=== PATIENT | female | born 1990 | race Asian ===

== ENCOUNTER 2020-10-12 10:38 | Day surgery (SDC) | payer OTHER, SELFPAY ==
[~2020-10-12] VITALS: Ht 170.2 cm; Wt 81.6 kg
[2020-10-12] MEDS ORDERED: LIDOCAINE 2% 100 MG/5 ML UJET TP ONE (12:34)
[2020-10-12] MEDS ORDERED: fentaNYL citrate 0.05 MG/ML VIAL ONE (12:34)
[2020-10-12] MEDS ORDERED: MIDAZOLAM 5 MG/5 ML VIAL ONE ×2 (12:34→13:15)
[2020-10-12] MEDS ORDERED: diphenhydrAMINE 50 MG/ML VIAL ONE (12:34)
[2020-10-12] MEDS ORDERED: MIDAZOLAM 5 MG/5 ML VIAL IV ONE (13:40)
[2020-10-12] MEDS ORDERED: fentaNYL citrate 0.05 MG/ML VIAL IVP ONE (13:40)
[2020-10-12] MEDS ORDERED: diphenhydrAMINE 50 MG/ML VIAL IVP ONE (13:40)
[2020-10-12] MEDS ORDERED: MIDAZOLAM 2 MG/2 ML VIAL IVP ONE (13:40)
== END 2020-10-12 14:06 | disposition home or self-care (01) ==
LOC: MDS 10:38 → MMU 10:49 → MDS 14:06
PROVIDERS: ATTEND Internal Medicine Gastroenterology
DX: K52.9 Noninfective gastroenteritis and colitis, unspecified (principal); K21.9 Gastro-esophageal reflux disease without esophagitis; Z79.899 Other long term (current) drug therapy; Z20.828 Contact with and (suspected) exposure to other viral communicable diseases
CPT/HCPCS: 45380; 81025; J1200; J2250; J3010; U0003; 88305